=== PATIENT | male | born 2000 | race Two or more races ===

== ENCOUNTER 2024-08-15 07:45 | Observation (INO) ==
[2024-08-15] MEDS: NOZIN NASAL SANITIZER TP ONE (08:04)
[2024-08-15] MEDS: LR 1,000 ML IV 1,000 ML IV ONE (08:15)
[2024-08-15] MEDS: ZOFRAN INJ 4 MG VIAL ONE (09:20)
[2024-08-15] MEDS: NS 100 ML IV 100 ML ONE (09:20)
[2024-08-15] MEDS: BRIDION ONE (09:20)
[2024-08-15] MEDS: OFIRMEV IV 1000 MG VIAL 1,000 MG/100 ML VIAL IV ONE (09:20)
[2024-08-15] MEDS: ANCEF VIAL 1 GRAM ONE (09:20)
[2024-08-15] MEDS: VERSED ONE (09:20)
[2024-08-15] MEDS: FENTANYL VIAL INJ 100 mcg ONE ×2 (09:20→09:38)
[2024-08-15] MEDS: REGLAN INJ 10 MG VIAL ONE (09:20)
[2024-08-15] MEDS: PEPCID 20 MG VIAL ONE (09:20)
[2024-08-15] MEDS: TORADOL 30 MG VIAL ONE (09:20)
[2024-08-15] MEDS: DIPRIVAN VIAL 20 ML ONE (09:20)
[2024-08-15] MEDS: ZEMURON 100 MG VIAL ONE (09:20)
[2024-08-15] MEDS ORDERED: SUPRANE ONE (09:30)
[2024-08-15] MEDS ORDERED: XYLOCAINE 2 % (PLAIN) ONE (09:30)
[2024-08-15] MEDS: BACTROBAN TOPICAL OINT ONE (09:41)
[2024-08-15] MEDS ORDERED: BARHEMSYS INJ IVP PRN (09:54)
[2024-08-15] MEDS ORDERED: REGLAN INJ 10 MG VIAL IVP PRN (09:54)
[2024-08-15] MEDS ORDERED: BENADRYL INJ 50 MG VIAL IVP PRN (09:54)
[2024-08-15] MEDS ORDERED: ZOFRAN INJ 4 MG VIAL IVP PRN (09:54)
[2024-08-15] MEDS ORDERED: ZOFRAN INJ 4 MG VIAL IV PRN (12:01)
[2024-08-15] MEDS: DILAUDID INJ IVP PRN ×2 (12:21→14:36)
[2024-08-15] MEDS: LEVAQUIN PREMIX IV 750 MG 750 MG/150 ML BAG IV SCH (14:35)
[2024-08-15] MEDS: D5 1/2 NS 1,000 ML 1,000 ML IV SCH (14:35)
[2024-08-15 15:54] VITALS: BMI 36.5
[2024-08-16 06:46] LABS: BASOPHILS # (AUTO) 0.1 X10^3/uL (0.0-0.1); EOSINOPHILS # (AUTO) 0.5 x10^3/uL (0.0-0.2); EOSINOPHILS % (AUTO) 4.3 % (0.9-2.9); HEMATOCRIT 41.3 % (42.0-54.0); HEMOGLOBIN 13.9 g/dL (13.5-18.0); LYMPHOCYTES # (AUTO) 2.5 X10^3/uL (1.3-2.9); LYMPHOCYTES % (AUTO) 20.3 % (21.0-51.0); MEAN CORPUSCULAR HEMOGLOBIN 27.9 pg (27.0-34.0); MEAN CORPUSCULAR HGB CONC 33.8 g/dL (33.0-35.0); MEAN CORPUSCULAR VOLUME 82.5 fL (80.0-100.0); MEAN PLATELET VOLUME 8.5 fL (7.4-11.0); MONOCYTES # (AUTO) 0.7 x10^3/uL (0.3-0.8); MONOCYTES % (AUTO) 5.8 % (0.0-13.0); NEUTROPHILS # (AUTO) 8.5 x10^3/uL (2.2-4.8); NEUTROPHILS % (AUTO) 68.6 % (42.0-75.0); PLATELET COUNT 340 X10^3/uL (150.0-450.0); RED BLOOD COUNT 5.01 X10^6/uL (4.7-6.0); WHITE BLOOD COUNT 12.4 X10^3/uL (3.6-10.0)
[2024-08-16 06:57] LABS: ALANINE AMINOTRANSFERASE 18 Units/L (12-78); ALBUMIN 3.1 g/dL (3.4-5.0); ALKALINE PHOSPHATASE 78 Units/L (46-116); ASPARTATE AMINO TRANSFERASE 19 Units/L (15-37); BLOOD UREA NITROGEN 3 mg/dL (7-18); CALCIUM 8.8 mg/dL (8.5-10.1); CHLORIDE 100 mmol/L (98-107); COR CA(FOR HYPOALB) 9.5 mg/dL (8.5-10.1); CREATININE 0.97 mg/dL (0.70-1.30); GLUCOSE 103 mg/dL (65-99); POTASSIUM 3.8 mmol/L (3.5-5.1); SODIUM 137 mmol/L (136-145); TOTAL PROTEIN 7.4 g/dL (6.4-8.2); eGFR NON BLACK RACES > 60 (>60)
[2024-08-16 08:01] VITALS: BP 131/81; PULSE 82; RESP 21; TEMP 98.3; O2SAT 95
== END 2024-08-16 11:30 | disposition home or self-care (01) ==
LOC: SURG1 07:45 → MED/SURG 07:45
PROVIDERS: ADMIT Surgery; ATTEND Surgery
DX: R10.13 Epigastric pain; K82.8 Other specified diseases of gallbladder; R11.2 Nausea with vomiting, unspecified; K80.12 Calculus of gallbladder with acute and chronic cholecystitis without obstruction; R10.11 Right upper quadrant pain